=== PATIENT | female | born 1970 | race Caucasian/White ===

== ENCOUNTER 2019-10-19 13:21 | Day surgery (SDC) | payer OTHER ==
[2019-10-19] MEDS ORDERED: Depo-Medrol 40 MG/ML IM ONE (13:22)
[2019-10-19] MEDS ORDERED: Marcaine 0.5% SDV 10 ML IJ ONE (13:22)
[2019-10-19] MEDS ORDERED: Ketamine HCl 50 MG/ML ONE (14:11)
[2019-10-19] MEDS ORDERED: DIPRIVAN 200 MG/20 ML IV ONE (14:11)
[2019-10-19] MEDS ORDERED: BENADRYL 50 MG/ML ONE (14:28)
[2019-10-19] MEDS ORDERED: TORAdol 30 mg Injection ONE (14:40)
[2019-10-19] MEDS ORDERED: Lactated Ringers 1,000 ML IV ONE (16:02)
--- NOTE | 2019-10-19 16:42 | XRAY ---
Indication: Bilateral SI joint injection. Intraoperative fluoroscopy was provided for 11 seconds. 4 digital spot image submitted for interpretation demonstrates posterior needle tip projecting over the inferior left and right SI joint. Correlate with intraoperative findings/report.
--- NOTE | 2019-10-19 16:44 | XRAY ---
11 seconds fluoroscopy time in surgery for bilateral SI joint injections.
== END 2019-10-19 14:51 | disposition home or self-care (01) ==
LOC: SDC-PAIN 13:21
PROVIDERS: ATTEND Psychiatry & Neurology Pain Medicine
DX: M46.1 Sacroiliitis, not elsewhere classified (principal); I10 Essential (primary) hypertension; M19.90 Unspecified osteoarthritis, unspecified site; K21.9 Gastro-esophageal reflux disease without esophagitis; F41.8 Other specified anxiety disorders; M79.7 Fibromyalgia; Z79.899 Other long term (current) drug therapy
CPT/HCPCS: 72202; 77002; 84703; G0260; 27096; J1030; J1200; J1885; J2704

== ENCOUNTER 2020-03-07 10:57 | Day surgery (SDC) | payer OTHER ==
[2020-03-07] MEDS ORDERED: Marcaine 0.5% SDV 10 ML IJ ONE (10:58)
[2020-03-07] MEDS ORDERED: Depo-Medrol 40 MG/ML IM ONE (10:58)
[2020-03-07] MEDS ORDERED: Ketamine HCl 50 MG/ML ONE (12:42)
[2020-03-07] MEDS ORDERED: BENADRYL 50 MG/ML ONE (12:42)
[2020-03-07] MEDS ORDERED: DIPRIVAN 200 MG/20 ML IV ONE (12:42)
[2020-03-07] MEDS ORDERED: TORAdol 30 mg Injection ONE (12:56)
--- NOTE | 2020-03-07 13:39 | XRAY ---
Indication: Bilateral SI joint injection. Intraoperative fluoroscopy was provided for 22 seconds. 4 digital spot images submitted for interpretation demonstrates posterior needle tip projecting over the inferior left and right SI joint. Correlate with intraoperative findings/report.
[2020-03-07] MEDS ORDERED: Lactated Ringers 1,000 ML IV ONE (13:50)
--- NOTE | 2020-03-07 14:07 | XRAY ---
22 seconds fluoroscopy time in surgery for bilateral SI joint injections.
== END 2020-03-07 13:12 | disposition home or self-care (01) ==
LOC: SDC-PAIN 10:57
PROVIDERS: ATTEND Psychiatry & Neurology Pain Medicine
DX: M46.1 Sacroiliitis, not elsewhere classified (principal); I10 Essential (primary) hypertension; F41.8 Other specified anxiety disorders; M79.7 Fibromyalgia; K21.9 Gastro-esophageal reflux disease without esophagitis; Z79.899 Other long term (current) drug therapy
CPT/HCPCS: 64451; 72202; 77002; 84703; J1030; J1200; J1885; J2704

== ENCOUNTER 2020-05-23 10:20 | Day surgery (SDC) | payer OTHER ==
[2020-05-23] MEDS ORDERED: Sodium Chloride 0.9(Preservative Free) 10 ML IJ ONE (10:21)
[2020-05-23] MEDS ORDERED: Depo-Medrol 40 MG/ML IM ONE (10:21)
[2020-05-23] MEDS ORDERED: BENADRYL 50 MG/ML ONE (11:42)
[2020-05-23] MEDS ORDERED: DIPRIVAN 200 MG/20 ML IV ONE (11:43)
[2020-05-23] MEDS ORDERED: Ketamine HCl 50 MG/ML ONE (11:43)
[2020-05-23] MEDS ORDERED: Lactated Ringers 1,000 ML IV ONE (13:52)
--- NOTE | 2020-05-26 18:06 | XRAY ---
Indication: Left L4-S1 transforaminal TOBIN. Intraoperative fluoroscopy was provided for 34 seconds. A total of 5 digital spot images in PA and lateral projections demonstrate posterior needle tips projected over the expected course of the left L4 and L5 nerve roots. A small amount of contrast has been injected for needle tip placement. Correlate with intraoperative findings/report.
--- NOTE | 2020-05-28 07:45 | XRAY ---
34 seconds fluoroscopy time in surgery for left L4-S1 transforaminal TOBIN.
== END 2020-05-23 12:11 | disposition home or self-care (01) ==
LOC: SDC-PAIN 10:20
PROVIDERS: ATTEND Psychiatry & Neurology Pain Medicine
DX: M54.16 Radiculopathy, lumbar region (principal); I10 Essential (primary) hypertension; K21.9 Gastro-esophageal reflux disease without esophagitis; M79.7 Fibromyalgia; M19.90 Unspecified osteoarthritis, unspecified site
CPT/HCPCS: 64483; 64484; 72100; 77003; 84703; J1030; J1200; J2704; Q9966

== ENCOUNTER 2020-06-27 10:41 | Day surgery (SDC) | payer OTHER ==
[2020-06-27] MEDS ORDERED: Depo-Medrol 40 MG/ML IM ONE (10:42)
[2020-06-27] MEDS ORDERED: BUPIVACAINE 0.5% VIAL IJ ONE (10:42)
[2020-06-27] MEDS ORDERED: BENADRYL 50 MG/ML ONE (11:47)
[2020-06-27] MEDS ORDERED: TORAdol 30 mg Injection ONE (11:48)
--- NOTE | 2020-06-27 13:48 | XRAY ---
Indication: Bilateral SI joint injection. Intraoperative fluoroscopy was provided for 14 seconds. 4 digital spot images submitted for interpretation demonstrates posterior needle tip projecting over the inferior left and right SI joints. Correlate with intraoperative findings/report.
[2020-06-27] MEDS ORDERED: Lactated Ringers 1,000 ML IV ONE (15:25)
--- NOTE | 2020-06-27 17:17 | XRAY ---
14 seconds of fluoroscopy was used in surgery for bilateral SI joint injection.
== END 2020-06-27 12:42 | disposition home or self-care (01) ==
LOC: SDC-PAIN 10:41
PROVIDERS: ATTEND Psychiatry & Neurology Pain Medicine
DX: M46.1 Sacroiliitis, not elsewhere classified (principal); I10 Essential (primary) hypertension; F41.8 Other specified anxiety disorders; M79.7 Fibromyalgia; K21.9 Gastro-esophageal reflux disease without esophagitis; Z79.899 Other long term (current) drug therapy
CPT/HCPCS: 72202; 77002; 84703; G0260; 27096; J1030; J1200; J1885

== ENCOUNTER 2020-11-21 11:37 | Day surgery (SDC) | payer OTHER ==
[2020-11-21] MEDS ORDERED: LIDOCAINE HCL 2% 100 MG/5 ML IJ ONE (11:38)
[2020-11-21] MEDS ORDERED: Ketamine HCl 50 MG/ML ONE (13:29)
[2020-11-21] MEDS ORDERED: DIPRIVAN 200 MG/20 ML IV ONE (13:29)
--- NOTE | 2020-11-21 14:28 | XRAY ---
Indication: Bilateral L4-S1 MBB. Intraoperative fluoroscopy provided for 13 seconds. Single digital spot image submitted for interpretation demonstrates posterior needle tips projecting over the expected left and right L4-S1 nerve roots. Correlate with intraoperative findings/report.
[2020-11-21] MEDS ORDERED: Lactated Ringers 1,000 ML IV ONE (15:03)
--- NOTE | 2020-11-21 16:52 | XRAY ---
13 seconds of fluoroscopy was used in surgery for a bilateral L4-L5 and L5-S1 MBB.
== END 2020-11-21 13:55 | disposition home or self-care (01) ==
LOC: SDC-PAIN 11:37
PROVIDERS: ATTEND Psychiatry & Neurology Pain Medicine
DX: M46.1 Sacroiliitis, not elsewhere classified (principal); M70.61 Trochanteric bursitis, right hip; M47.817 Spondylosis without myelopathy or radiculopathy, lumbosacral region; I10 Essential (primary) hypertension; K21.9 Gastro-esophageal reflux disease without esophagitis; F41.8 Other specified anxiety disorders; M79.7 Fibromyalgia; Z79.899 Other long term (current) drug therapy
CPT/HCPCS: 64493; 64494; 72020; 77002; 84703; J2704

== ENCOUNTER 2021-01-02 09:45 | Day surgery (SDC) | payer OTHER ==
[2021-01-02] MEDS ORDERED: BUPIVACAINE 0.5% VIAL IJ ONE (09:46)
[2021-01-02] MEDS ORDERED: Depo-Medrol 40 MG/ML IM ONE (09:46)
[2021-01-02] MEDS ORDERED: Ketamine HCl 50 MG/ML ONE (11:41)
[2021-01-02] MEDS ORDERED: DIPRIVAN 200 MG/20 ML IV ONE (11:41)
[2021-01-02] MEDS ORDERED: TORAdol 30 mg Injection ONE (11:44)
[2021-01-02] MEDS ORDERED: BENADRYL 50 MG/ML ONE (11:44)
--- NOTE | 2021-01-02 14:09 | XRAY ---
Indication: Bilateral L4-S1 MBB. Intraoperative fluoroscopy provided for 9 seconds. Single digital spot image submitted for interpretation demonstrates posterior needle tips projecting over the expected left and right L4-S1 nerve roots. Correlate with intraoperative findings/report.
--- NOTE | 2021-01-02 14:22 | XRAY ---
9 seconds of fluoroscopy was used in surgery for a bilateral L4-L5 and L5-S1 MBB.
[2021-01-02] MEDS ORDERED: Lactated Ringers 1,000 ML IV ONE (15:04)
== END 2021-01-02 12:13 | disposition home or self-care (01) ==
LOC: SDC-PAIN 09:45
PROVIDERS: ATTEND Psychiatry & Neurology Pain Medicine
DX: M47.816 Spondylosis without myelopathy or radiculopathy, lumbar region (principal); I10 Essential (primary) hypertension; M19.90 Unspecified osteoarthritis, unspecified site; K21.9 Gastro-esophageal reflux disease without esophagitis; F32.9 Major depressive disorder, single episode, unspecified; F41.9 Anxiety disorder, unspecified; M79.7 Fibromyalgia; Z79.899 Other long term (current) drug therapy
CPT/HCPCS: 64493; 64494; 72020; 77002; 84703; J1030; J1200; J1885; J2704

== ENCOUNTER 2021-02-13 08:08 | Day surgery (SDC) | payer OTHER ==
[2021-02-13] MEDS ORDERED: Xylocaine 1% Vial 30 ML PF IJ ONE (08:09)
[2021-02-13] MEDS ORDERED: BUPIVACAINE 0.5% VIAL IJ ONE (08:09)
[2021-02-13] MEDS ORDERED: Depo-Medrol 40 MG/ML IM ONE (08:09)
[2021-02-13] MEDS ORDERED: DIPRIVAN 200 MG/20 ML IV ONE (08:49)
--- NOTE | 2021-02-13 10:04 | XRAY ---
Indication: Left L4-S1 RFA. Intraoperative fluoroscopy provided for 13 seconds. 2 digital spot images submitted for interpretation demonstrates posterior needle tips projecting over the expected left L4-S1 nerve roots. Correlate with intraoperative findings/report.
--- NOTE | 2021-02-13 10:08 | XRAY ---
13 seconds fluoroscopy time in surgery for left L4-S1 RFA.
[2021-02-13] MEDS ORDERED: Lactated Ringers 1,000 ML IV ONE (16:09)
== END 2021-02-13 09:16 | disposition home or self-care (01) ==
LOC: SDC-PAIN 08:08
PROVIDERS: ATTEND Psychiatry & Neurology Pain Medicine
DX: M47.816 Spondylosis without myelopathy or radiculopathy, lumbar region (principal); I10 Essential (primary) hypertension; K21.9 Gastro-esophageal reflux disease without esophagitis; M79.7 Fibromyalgia; F41.8 Other specified anxiety disorders; Z79.899 Other long term (current) drug therapy
CPT/HCPCS: 64635; 64636; 72100; 77002; 84703; J1030; J2001; J2704

== ENCOUNTER 2021-02-27 09:12 | Day surgery (SDC) | payer OTHER ==
[2021-02-27] MEDS ORDERED: Xylocaine 1% Vial 30 ML PF IJ ONE (09:13)
[2021-02-27] MEDS ORDERED: Depo-Medrol 40 MG/ML IM ONE (09:13)
[2021-02-27] MEDS ORDERED: BUPIVACAINE 0.5% VIAL IJ ONE (09:13)
[2021-02-27] MEDS ORDERED: DIPRIVAN 200 MG/20 ML IV ONE (09:13)
[2021-02-27] MEDS ORDERED: TORAdol 30 mg Injection ONE (10:10)
[2021-02-27] MEDS ORDERED: BENADRYL 50 MG/ML ONE (10:10)
--- NOTE | 2021-02-27 16:12 | XRAY ---
18 seconds fluoroscopy time in surgery for right L4-S1 RFA
[2021-02-27] MEDS ORDERED: Lactated Ringers 1,000 ML IV ONE (16:39)
--- NOTE | 2021-02-28 21:44 | XRAY ---
Indication: Right L4-S1 RFA. Intraoperative fluoroscopy was provided for 18 seconds. 3 digital spot images submitted for interpretation demonstrate posterior needle tips projected over the expected course of the right L4-S1 nerve roots. Correlate with intraoperative findings/report.
== END 2021-02-27 10:57 | disposition home or self-care (01) ==
LOC: SDC-PAIN 09:12
PROVIDERS: ATTEND Psychiatry & Neurology Pain Medicine
DX: M47.816 Spondylosis without myelopathy or radiculopathy, lumbar region (principal); I10 Essential (primary) hypertension; M79.7 Fibromyalgia; F41.8 Other specified anxiety disorders; Z79.899 Other long term (current) drug therapy
CPT/HCPCS: 64635; 64636; 72100; 77002; 84703; J1030; J1200; J1885; J2001; J2704

== ENCOUNTER 2021-06-05 12:32 | Day surgery (SDC) | payer OTHER ==
[2021-06-05] MEDS ORDERED: Depo-Medrol 40 MG/ML IM ONE (12:33)
[2021-06-05] MEDS ORDERED: BUPIVACAINE 0.5% VIAL IJ ONE (12:33)
[2021-06-05] MEDS ORDERED: DIPRIVAN 200 MG/20 ML IV ONE (13:48)
[2021-06-05] MEDS ORDERED: BENADRYL 50 MG/ML ONE (13:50)
[2021-06-05] MEDS ORDERED: TORAdol 30 mg Injection ONE (13:51)
[2021-06-05] MEDS ORDERED: Lactated Ringers 1,000 ML IV ONE (15:58)
--- NOTE | 2021-06-06 12:03 | XRAY ---
20 seconds fluoroscopy time in surgery for injections of both SI joints
--- NOTE | 2021-06-09 00:29 | XRAY ---
Indication: Bilateral sacroiliac joint injections. Intraoperative fluoroscopy was provided for 20 seconds. 2 digital spot images of each sacroiliac joint submitted for interpretation demonstrate a needle tip projected over the inferior margin of both the left and right sacroiliac joints. Correlate with intraoperative findings/report.
== END 2021-06-05 14:10 | disposition home or self-care (01) ==
LOC: SDC-PAIN 12:32
PROVIDERS: ATTEND Psychiatry & Neurology Pain Medicine
DX: M46.1 Sacroiliitis, not elsewhere classified (principal); Z79.899 Other long term (current) drug therapy
CPT/HCPCS: 27096; 72202; 77002; 84703; J1030; J1200; J1885; J2704; G0260

== ENCOUNTER 2021-10-09 11:08 | Day surgery (SDC) | payer OTHER ==
[2021-10-09] MEDS ORDERED: Depo-Medrol 40 MG/ML IM ONE (11:09)
[2021-10-09] MEDS ORDERED: BUPIVACAINE 0.5% VIAL IJ ONE (11:09)
[2021-10-09] MEDS ORDERED: DIPRIVAN 200 MG/20 ML IV ONE (12:49)
[2021-10-09] MEDS ORDERED: BENADRYL 50 MG/ML ONE (12:50)
[2021-10-09] MEDS ORDERED: Lactated Ringers 1,000 ML IV ONE (13:20)
--- NOTE | 2021-10-09 13:51 | XRAY ---
Indication: Bilateral SI joint injection. Intraoperative fluoroscopy provided for 17 seconds. 4 digital spot images submitted for interpretation demonstrates posterior needle tip projecting over the inferior left and right SI joint. Correlate with intraoperative findings/report.
--- NOTE | 2021-10-09 14:06 | XRAY ---
17 seconds of fluoroscopy was used in surgery for bilateral SI joint injections.
== END 2021-10-09 13:15 | disposition home or self-care (01) ==
LOC: SDC-PAIN 11:08
PROVIDERS: ATTEND Psychiatry & Neurology Pain Medicine
DX: M46.1 Sacroiliitis, not elsewhere classified (principal); I10 Essential (primary) hypertension; K21.9 Gastro-esophageal reflux disease without esophagitis; Z79.899 Other long term (current) drug therapy
CPT/HCPCS: 27096; 72202; 77002; 84703; G0260; J1030; J1200; J2704

== ENCOUNTER 2022-02-05 13:26 | Day surgery (SDC) | payer OTHER ==
[2022-02-05] MEDS ORDERED: BENADRYL 50 MG/ML ONE (16:20)
[2022-02-05] MEDS ORDERED: TORAdol 30 mg Injection ONE (16:20)
[2022-02-05] MEDS ORDERED: Lactated Ringers 1,000 ML IV ONE (16:24)
[2022-02-05] MEDS ORDERED: DIPRIVAN 200 MG/20 ML IV ONE (16:41)
--- NOTE | 2022-02-05 18:34 | XRAY ---
Indication: Bilateral SI joint injection. Intraoperative fluoroscopy provided for 29 seconds. 5 digital spot image submitted for interpretation demonstrates posterior needle tip projecting over the inferior left and right SI joint. Correlate with intraoperative findings/report.
--- NOTE | 2022-02-06 09:36 | XRAY ---
29 seconds fluoroscopy time in surgery for injections of both SI joints.
== END 2022-02-05 17:10 | disposition home or self-care (01) ==
LOC: SDC-PAIN 13:26
PROVIDERS: ATTEND Psychiatry & Neurology Pain Medicine
DX: M46.1 Sacroiliitis, not elsewhere classified (principal); Z79.899 Other long term (current) drug therapy
CPT/HCPCS: 72202; 77002; 84703; J1200; J1885; J2704

== ENCOUNTER 2022-06-18 15:53 | Day surgery (SDC) | payer OTHER ==
[2022-06-18] MEDS ORDERED: Depo-Medrol 40 MG/ML IM ONE (15:54)
[2022-06-18] MEDS ORDERED: Marcaine Mpf 0.5% Vial 30 Ml IJ ONE (15:54)
[2022-06-18] MEDS ORDERED: Lactated Ringers 1,000 ML IV ONE (16:38)
[2022-06-18] MEDS ORDERED: DIPRIVAN 200 MG/20 ML IV ONE (17:24)
--- NOTE | 2022-06-18 19:41 | XRAY ---
Indication: Bilateral SI joint injection. Intraoperative fluoroscopy provided for 24 seconds. 4 digital spot image submitted for interpretation demonstrates posterior needle tip projecting over the left and right SI joint. Correlate with intraoperative findings/report.
--- NOTE | 2022-06-19 09:21 | XRAY ---
24 seconds fluoroscopy time in surgery for injections of both SI joints.
== END 2022-06-18 17:48 | disposition home or self-care (01) ==
LOC: SDC-PAIN 15:53
PROVIDERS: ATTEND Psychiatry & Neurology Pain Medicine
DX: M46.1 Sacroiliitis, not elsewhere classified (principal); Z79.899 Other long term (current) drug therapy
CPT/HCPCS: 27096; 72202; 77002; 81025; G0260; J1030; J2704

== ENCOUNTER 2022-10-01 13:27 | Day surgery (SDC) | payer OTHER ==
[2022-10-01] MEDS ORDERED: BUPIVACAINE 0.5% VIAL IJ ONE (13:28)
[2022-10-01] MEDS ORDERED: TORAdol 30 mg Injection ONE (14:59)
[2022-10-01] MEDS ORDERED: BENADRYL 50 MG/ML ONE (14:59)
[2022-10-01] MEDS ORDERED: Lactated Ringers 1,000 ML IV ONE (17:04)
--- NOTE | 2022-10-01 19:24 | XRAY ---
Indication: Bilateral L4-S1 MBB. Intraoperative fluoroscopy provided for 10 seconds. Single digital spot submitted for interpretation demonstrates posterior needle tips projecting over the expected left and right L4-S1 nerve roots. Correlate with intraoperative findings/report.
--- NOTE | 2022-10-01 20:02 | XRAY ---
10 seconds of fluoroscopy was used in surgery for a bilateral L4-S1 MBB.
== END 2022-10-01 16:05 | disposition home or self-care (01) ==
LOC: SDC-PAIN 13:27
PROVIDERS: ATTEND Psychiatry & Neurology Pain Medicine
DX: M47.816 Spondylosis without myelopathy or radiculopathy, lumbar region (principal); Z79.899 Other long term (current) drug therapy
CPT/HCPCS: 64493; 64494; 72020; 77002; 81025; J1200; J1885

== ENCOUNTER 2022-11-05 11:46 | Day surgery (SDC) | payer OTHER ==
[2022-11-05] MEDS ORDERED: Depo-Medrol 40 MG/ML IM ONE (11:47)
[2022-11-05] MEDS ORDERED: LIDOCAINE HCL 1% 50 MG/5 ML VL PF IJ ONE (11:47)
[2022-11-05] MEDS ORDERED: BUPIVACAINE 0.5% VIAL IJ ONE (11:47)
[2022-11-05] MEDS ORDERED: DIPRIVAN 200 MG/20 ML IV ONE (14:20)
[2022-11-05] MEDS ORDERED: BENADRYL 50 MG/ML ONE (14:20)
[2022-11-05] MEDS ORDERED: TORAdol 30 mg Injection ONE (14:20)
[2022-11-05] MEDS ORDERED: Lactated Ringers 1,000 ML IV ONE (15:39)
--- NOTE | 2022-11-05 16:47 | XRAY ---
Indication: Right L4-S1 RFA. Intraoperative fluoroscopy provided for 19 seconds. 4 digital spot image submitted for interpretation demonstrates posterior needle tips projecting over the expected right L4-S1 nerve roots. Correlate with intraoperative findings/report.
--- NOTE | 2022-11-05 16:55 | XRAY ---
19 seconds of fluoroscopy was used in surgery for a right L4-S1 RFA.
== END 2022-11-05 15:05 | disposition home or self-care (01) ==
LOC: SDC-PAIN 11:46
PROVIDERS: ATTEND Psychiatry & Neurology Pain Medicine
DX: M47.816 Spondylosis without myelopathy or radiculopathy, lumbar region (principal); Z79.899 Other long term (current) drug therapy
CPT/HCPCS: 64635; 64636; 72100; 77002; 81025; J1030; J1200; J1885; J2001; J2704

== ENCOUNTER 2022-11-12 11:51 | Day surgery (SDC) | payer OTHER ==
[2022-11-12] MEDS ORDERED: BUPIVACAINE 0.5% VIAL IJ ONE (11:52)
[2022-11-12] MEDS ORDERED: Depo-Medrol 40 MG/ML IM ONE (11:52)
[2022-11-12] MEDS ORDERED: LIDOCAINE HCL 1% 50 MG/5 ML VL PF IJ ONE (11:52)
[2022-11-12] MEDS ORDERED: BENADRYL 50 MG/ML ONE (12:39)
[2022-11-12] MEDS ORDERED: TORAdol 30 mg Injection ONE (12:39)
[2022-11-12] MEDS ORDERED: DIPRIVAN 200 MG/20 ML IV ONE (13:58)
--- NOTE | 2022-11-12 14:29 | XRAY ---
Indication: Left L4-S1 RFA. Intraoperative fluoroscopy provided for 14 seconds. 4 digital spot images submitted for interpretation demonstrates posterior needle tips projecting over the expected left L4-S1 nerve roots. Correlate with intraoperative findings/report.
[2022-11-12] MEDS ORDERED: Lactated Ringers 1,000 ML IV ONE (14:35)
--- NOTE | 2022-11-12 15:13 | XRAY ---
14 seconds of fluoroscopy was used in surgery for a left L4-S1 RFA.
== END 2022-11-12 14:30 | disposition home or self-care (01) ==
LOC: SDC-PAIN 11:51
PROVIDERS: ATTEND Psychiatry & Neurology Pain Medicine
DX: M47.816 Spondylosis without myelopathy or radiculopathy, lumbar region (principal); Z79.899 Other long term (current) drug therapy
CPT/HCPCS: 64635; 64636; 72100; 77002; 81025; J1030; J1200; J1885; J2001; J2704

== ENCOUNTER 2023-04-29 13:51 | Day surgery (SDC) | payer OTHER ==
[2023-04-29] MEDS ORDERED: BUPIVACAINE 0.5% VIAL IJ ONE (13:52)
[2023-04-29] MEDS ORDERED: Depo-Medrol 40 MG/ML IM ONE (13:52)
[2023-04-29] MEDS ORDERED: TORAdol 30 mg Injection ONE (14:15)
[2023-04-29] MEDS ORDERED: BENADRYL 50 MG/ML ONE (14:15)
[2023-04-29 14:39] LABS: HCG URINE TEST NEGATIVE (NEGATIVE)
[2023-04-29] MEDS ORDERED: DIPRIVAN 200 MG/20 ML IV ONE (14:58)
[2023-04-29] MEDS ORDERED: Lactated Ringers 1,000 ML IV ONE (15:18)
--- NOTE | 2023-04-29 16:35 | XRAY ---
Indication: Bilateral SI joint injection. Intraoperative fluoroscopy provided for 20 seconds. 5 digital spot image submitted for interpretation demonstrates posterior needle tip projecting over the expected left and right SI joint. Correlate with intraoperative findings/report.
--- NOTE | 2023-04-29 16:41 | XRAY ---
20 seconds of fluoroscopy was used in surgery for a bilateral sacroiliac joint injection.
== END 2023-04-29 15:25 | disposition home or self-care (01) ==
LOC: SDC-PAIN 13:51
PROVIDERS: ATTEND Psychiatry & Neurology Pain Medicine
DX: M46.1 Sacroiliitis, not elsewhere classified (principal); Z79.899 Other long term (current) drug therapy
CPT/HCPCS: 27096; 72202; 77002; 81025; J1030; J1200; J1885; J2704; G0260

== ENCOUNTER 2023-07-08 12:01 | Day surgery (SDC) | payer OTHER ==
[2023-07-08] MEDS ORDERED: LIDOCAINE HCL 1% 50 MG/5 ML VL PF IJ ONE (12:02)
[2023-07-08] MEDS ORDERED: Decadron 4 MG INJ IV ONE (12:02)
[2023-07-08 12:39] LABS: HCG URINE TEST NEGATIVE (NEGATIVE)
[2023-07-08] MEDS ORDERED: DIPRIVAN 200 MG/20 ML IV ONE (13:02)
[2023-07-08] MEDS ORDERED: Lactated Ringers 1,000 ML IV ONE (14:37)
--- NOTE | 2023-07-08 14:46 | XRAY ---
Indication: Bilateral piriformis injection. Intraoperative fluoroscopy provided for 18 seconds. 2 digital spot image submitted for interpretation demonstrates posterior needle tip projecting over the expected left and right piriformis. Small amount of contrast injected for needle tip placement. Correlate with intraoperative findings
--- NOTE | 2023-07-08 16:47 | XRAY ---
18 seconds of fluoroscopy was used in surgery for a bilateral piriformis injection.
== END 2023-07-08 13:35 | disposition home or self-care (01) ==
LOC: SDC-PAIN 12:01
PROVIDERS: ATTEND Psychiatry & Neurology Pain Medicine
DX: M79.18 Myalgia, other site (principal); Z79.899 Other long term (current) drug therapy
CPT/HCPCS: 20552; 72170; 77002; 81025; J1100; J2001; J2704; Q9966

== ENCOUNTER 2023-12-09 15:00 | Day surgery (SDC) | payer OTHER ==
[2023-12-09] MEDS ORDERED: Depo-Medrol 40 MG/ML IM ONE (15:01)
[2023-12-09] MEDS ORDERED: BUPIVACAINE 0.5% VIAL IJ ONE (15:01)
[2023-12-09 15:41] LABS: HCG URINE TEST NEGATIVE (NEGATIVE)
[2023-12-09] MEDS ORDERED: DIPRIVAN 200 MG/20 ML IV ONE (17:21)
[2023-12-09] MEDS ORDERED: TORAdol 30 mg Injection ONE (17:25)
[2023-12-09] MEDS ORDERED: BENADRYL 50 MG/ML ONE (17:25)
[2023-12-09] MEDS ORDERED: Lactated Ringers 1,000 ML IV ONE (17:39)
--- NOTE | 2023-12-09 20:21 | XRAY ---
Indication: Bilateral SI joint injection. Intraoperative fluoroscopy provided for 23 seconds. 4 digital spot images submitted for interpretation demonstrates posterior needle tip projecting over the left and right SI joint. Small amount of contrast injected for needle tip placement. Correlate with intraoperative findings/report.
--- NOTE | 2023-12-10 08:44 | XRAY ---
23 seconds of fluoroscopy was used in surgery for a bilateral sacroiliac joint injection.
== END 2023-12-09 17:50 | disposition home or self-care (01) ==
LOC: SDC-PAIN 15:00
PROVIDERS: ATTEND Psychiatry & Neurology Pain Medicine
DX: M46.1 Sacroiliitis, not elsewhere classified (principal)
CPT/HCPCS: 01992; 27096; 72202; 77002; 81025; G0260; J1030; J1200; J1885; J2704; Q9966

== ENCOUNTER 2023-12-30 15:16 | Day surgery (SDC) | payer OTHER ==
[2023-12-30] MEDS ORDERED: XYLOCAINE-MPF 1% 5ML SDV IJ ONE (15:17)
[2023-12-30] MEDS ORDERED: Depo-Medrol 40 MG/ML IM ONE (15:17)
[2023-12-30] MEDS ORDERED: BUPIVACAINE 0.5% VIAL IJ ONE (15:17)
[2023-12-30] MEDS ORDERED: Lactated Ringers 1,000 ML IV ONE (15:35)
[2023-12-30 15:45] LABS: HCG URINE TEST NEGATIVE (NEGATIVE)
[2023-12-30] MEDS ORDERED: DIPRIVAN 200 MG/20 ML IV ONE (16:42)
[2023-12-30] MEDS ORDERED: BENADRYL 50 MG/ML ONE (16:47)
[2023-12-30] MEDS ORDERED: TORAdol 30 mg Injection ONE (16:47)
--- NOTE | 2023-12-30 19:35 | XRAY ---
Indication: Right L4-S1 RFA. Intraoperative fluoroscopy provided for 21 seconds. 5 digital spot image submitted for interpretation demonstrates posterior needle tips projecting over the expected right L4-S1 nerve roots. Correlate with intraoperative findings/report.
--- NOTE | 2023-12-31 12:16 | XRAY ---
21 seconds of fluoroscopy was used in surgery for a right L4-S1 RFA.
== END 2023-12-30 17:20 | disposition home or self-care (01) ==
LOC: SDC-PAIN 15:16
PROVIDERS: ATTEND Psychiatry & Neurology Pain Medicine
DX: M47.816 Spondylosis without myelopathy or radiculopathy, lumbar region (principal)
CPT/HCPCS: 64635; 64636; 72100; 77002; 81025; J1030; J1200; J1885; J2704

== ENCOUNTER 2024-01-06 12:00 | Day surgery (SDC) | payer OTHER ==
[2024-01-06] MEDS ORDERED: LIDOCAINE HCL 1% 50 MG/5 ML VL PF IJ ONE (12:01)
[2024-01-06] MEDS ORDERED: Depo-Medrol 40 MG/ML IM ONE (12:01)
[2024-01-06] MEDS ORDERED: BUPIVACAINE 0.5% VIAL IJ ONE (12:01)
[2024-01-06 12:14] LABS: HCG URINE TEST NEGATIVE (NEGATIVE)
[2024-01-06] MEDS ORDERED: DIPRIVAN 200 MG/20 ML IV ONE (13:23)
[2024-01-06] MEDS ORDERED: TORAdol 30 mg Injection ONE (13:26)
[2024-01-06] MEDS ORDERED: BENADRYL 50 MG/ML ONE (13:26)
[2024-01-06] MEDS ORDERED: Lactated Ringers 1,000 ML IV ONE (14:02)
--- NOTE | 2024-01-06 15:06 | XRAY ---
Indication: Left L4-S1 RFA. Intraoperative fluoroscopy provided for 15 seconds. 3 digital spot image submitted for interpretation demonstrates posterior needle tips projecting over expected left L4-S1 nerve roots. Correlate with intraoperative findings/report.
--- NOTE | 2024-01-06 15:08 | XRAY ---
15 seconds of fluoroscopy was used in surgery for a left L4-S1 RFA.
== END 2024-01-06 14:00 | disposition home or self-care (01) ==
LOC: SDC-PAIN 12:00
PROVIDERS: ATTEND Psychiatry & Neurology Pain Medicine
DX: M47.816 Spondylosis without myelopathy or radiculopathy, lumbar region (principal)
CPT/HCPCS: 64635; 64636; 72100; 77002; 81025; J1030; J1200; J1885; J2001; J2704